=== PATIENT | male | born 1995 | race Caucasian/White ===

== ENCOUNTER 2024-07-29 08:33 | Inpatient (IN) | payer MEDICAID ==
[~2024-07-29] VITALS: Ht 170.2 cm; Wt 79.8 kg
[2024-07-29 09:05] LABS: BASOPHILS % 0.4 % (0.0-2.0); EOSINOPHILS % 0.1 % (0.0-5.0); HEMATOCRIT. 41.8 % (42.0-52.0); HEMOGLOBIN. 14.5 g/dL (14.0-18.0); LYMPHOCYTES % 13.4 % (20.0-50.0); MEAN CORPUSCULAR HEMOGLOBIN 31.1 pg (28.0-32.0); MEAN CORPUSCULAR HGB CONC 34.8 g/dL (31.0-37.0); MEAN CORPUSCULAR VOLUME 89.5 fL (80.0-94.0); MONOCYTES % 5.6 % (2.0-8.0); NEUTROPHILS % 80.5 % (40.0-76.0); PLATELET 206 x1000/uL (130-400); RED BLOOD CELL COUNT 4.67 mill/uL (4.7-6.1); RED CELL DISTRIBUTION WIDTH 13.9 % (11.6-14.6); WHITE BLOOD COUNT 13.9 x1000/uL (4.5-11.0)
[2024-07-29] MEDS: MORPHINE SULFATE 4 MG/ML INJ (FOR IV/IM USE) IV STA (09:11)
[2024-07-29] MEDS: ONDANSETRON HCL 4MG/2ML INJ IV STA (09:11)
[2024-07-29] MEDS: SODIUM CHLORIDE 0.9% 1,000 ML IV ONE (09:11)
[2024-07-29 09:13] LABS: CHLORIDE 97 mEq/L (98-107); POTASSIUM 3.3 mEq/L (3.5-5.1); SODIUM 134 mEq/L (136-145)
[2024-07-29 09:14] LABS: CARBON DIOXIDE 20 mEq/L (21-32)
[2024-07-29 09:15] LABS: CALCIUM 9.5 mg/dL (8.7-10.4)
[2024-07-29 09:19] LABS: CREATININE 0.9 mg/dL (0.6-1.3); GLUCOSE 127 mg/dL (70-105)
[2024-07-29 09:20] LABS: UREA NITROGEN BLOOD 17 mg/dL (9-23)
[2024-07-29 09:21] LABS: ALANINE AMINOTRANSFERASE 23 IU/L (10-49); ALBUMIN 4.4 g/dL (3.2-4.8); ASPARTATE AMINOTRANSFERASE 39 IU/L (<34)
[2024-07-29 09:22] LABS: BILIRUBIN DIRECT 0.3 mg/dL (<=3.0); BILIRUBIN TOTAL 1.3 mg/dL (0.1-1.0); PROTEIN TOTAL 7.5 g/dL (6.0-8.3)
[2024-07-29 09:25] LABS: INR 1.1; PROTHROMBIN TIME 11.4 sec (9.6-11.0)
[2024-07-29] MEDS: KETOROLAC 30MG/ML VIAL IV ONE (11:05)
[2024-07-29] MEDS ORDERED: DEXTROSE 50% WATER 50ML SYRINGE IV PRN (12:15)
[2024-07-29] MEDS ORDERED: ONDANSETRON HCL 4MG/2ML INJ IV PRN (12:15)
[2024-07-29] MEDS ORDERED: HYDROMORPHONE HCL/PF 2MG/ML INJ IV PRN (12:30)
[2024-07-29] MEDS: SODIUM CHLORIDE 0.9% 1,000 ML IV SCH (12:37)
[2024-07-29] MEDS ORDERED: NALOXONE HCL 0.4MG/ML VIAL IV PRN (12:45)
[2024-07-29] MEDS: ENOXAPARIN 40MG/0.4ML SYR SUBCUT SCH (12:48)
[2024-07-29] MEDS: LACTATED RINGERS 1,000 ML IV SCH (12:50)
[2024-07-29] MEDS: BLOOD SUGAR DIAGNOSTIC STRIP TEST SCH (13:05)
[2024-07-29] MEDS: INSULIN LISPRO 100 UNITS/ML SUBCUT SCH (13:20)
[2024-07-29] MEDS: ACETAMINOPHEN 1000MG/100ML 100 ML IV NR (13:30)
[2024-07-29] MEDS: PANTOPRAZOLE SODIUM 40 MG/VIAL IV NR (14:54)
[2024-07-29] MEDS: HYDROMORPHONE HCL/PF 1MG/ML INJ IV PRN (15:30)
[2024-07-29 17:49] VITALS: BP 141/90; PULSE 70; RESP 16; TEMP 37.1
[2024-07-29] MEDS: KETOROLAC 15MG/ML VIAL IV PRN (18:49)
[2024-07-29 20:00] VITALS: BP 148/95; PULSE 71; RESP 18; TEMP 36.4; O2SAT 100
[2024-07-29] MEDS: MORPHINE SULFATE 4 MG/ML INJ (FOR IV/IM USE) IV PRN (22:39)
[2024-07-30] VITALS: BP 152/80; PULSE 110; RESP 17; TEMP 36.3; O2SAT 97
[2024-07-30 04:00] VITALS: BP 139/102; PULSE 106; RESP 18; TEMP 36.6; O2SAT 97
[2024-07-30 06:34] LABS: BASOPHILS % 0.1 % (0.0-2.0); EOSINOPHILS % 0.1 % (0.0-5.0); HEMATOCRIT. 48.5 % (42.0-52.0); HEMOGLOBIN. 16.6 g/dL (14.0-18.0); LYMPHOCYTES % 10.2 % (20.0-50.0); MEAN CORPUSCULAR HEMOGLOBIN 30.8 pg (28.0-32.0); MEAN CORPUSCULAR HGB CONC 34.3 g/dL (31.0-37.0); MEAN CORPUSCULAR VOLUME 89.8 fL (80.0-94.0); MEAN PLATELET VOLUME 7.8 fl (7.4-10.4); MONOCYTES % 4.3 % (2.0-8.0); NEUTROPHILS % 85.3 % (40.0-76.0); PLATELET 173 x1000/uL (130-400); RED CELL DISTRIBUTION WIDTH 14.3 % (11.6-14.6)
[2024-07-30 06:47] LABS: CHLORIDE 102 mEq/L (98-107); POTASSIUM 3.9 mEq/L (3.5-5.1); SODIUM 136 mEq/L (136-145)
[2024-07-30 06:48] LABS: CARBON DIOXIDE 21 mEq/L (21-32)
[2024-07-30 06:49] LABS: CALCIUM 8.6 mg/dL (8.7-10.4)
[2024-07-30 06:53] LABS: CREATININE 0.9 mg/dL (0.6-1.3); GLUCOSE 137 mg/dL (70-105)
[2024-07-30 06:54] LABS: AMYLASE 676 IU/L (30-118); PROTEIN TOTAL 6.4 g/dL (6.0-8.3); UREA NITROGEN BLOOD 15 mg/dL (9-23)
[2024-07-30 06:55] LABS: ALANINE AMINOTRANSFERASE 13 IU/L (10-49); ALBUMIN 3.9 g/dL (3.2-4.8); ASPARTATE AMINOTRANSFERASE 27 IU/L (<34); BILIRUBIN DIRECT 0.4 mg/dL (<=3.0)
[2024-07-30 06:56] LABS: BILIRUBIN TOTAL 1.3 mg/dL (0.1-1.0)
[2024-07-30 07:07] LABS: HEPATITIS B SURFACE ANTIGEN NEGATIVE (Negative)
[2024-07-30 07:27] LABS: HEPATITIS A AB IGM NEGATIVE (Negative)
[2024-07-30 07:28] LABS: HEPATITIS B CORE AB IGM NEGATIVE (Negative); HEPATITIS C AB NON REACTIVE (Neg) (Negative)
[2024-07-30 08:00] VITALS: BP 165/111; PULSE 107; RESP 18; TEMP 36.6; O2SAT 98
[2024-07-30] MEDS: CLONIDINE 0.1MG TABLET PO PRN (09:13)
[2024-07-30] MEDS: PANTOPRAZOLE SODIUM 40 MG/VIAL IV SCH (09:14)
[2024-07-30 12:00] VITALS: BP 153/104; PULSE 83; RESP 18; TEMP 36.3; O2SAT 99
[2024-07-30 16:00] VITALS: BP 150/105; PULSE 90; RESP 18; TEMP 36.4; O2SAT 98
[2024-07-30 20:00] VITALS: BP 155/70; PULSE 86; RESP 18; TEMP 36.5; O2SAT 98
[2024-07-31] VITALS: BP 151/95; PULSE 77; RESP 18; TEMP 36.5; O2SAT 97
[2024-07-31 04:00] VITALS: BP 159/95; PULSE 76; RESP 18; TEMP 36.5; O2SAT 96
[2024-07-31 07:15] LABS: CARBON DIOXIDE 27 mEq/L (21-32); CHLORIDE 99 mEq/L (98-107); POTASSIUM 3.7 mEq/L (3.5-5.1); SODIUM 134 mEq/L (136-145)
[2024-07-31 07:16] LABS: CALCIUM 7.9 mg/dL (8.7-10.4)
[2024-07-31 07:19] LABS: BASOPHILS % 0.1 % (0.0-2.0); EOSINOPHILS % 0.9 % (0.0-5.0); HEMATOCRIT. 37.6 % (42.0-52.0); HEMOGLOBIN. 13.2 g/dL (14.0-18.0); LYMPHOCYTES % 16.4 % (20.0-50.0); MEAN CORPUSCULAR HEMOGLOBIN 31.2 pg (28.0-32.0); MEAN PLATELET VOLUME 7.7 fl (7.4-10.4); MONOCYTES % 5.5 % (2.0-8.0); NEUTROPHILS % 77.1 % (40.0-76.0); PLATELET 127 x1000/uL (130-400); RED BLOOD CELL COUNT 4.22 mill/uL (4.7-6.1); RED CELL DISTRIBUTION WIDTH 14.2 % (11.6-14.6); WHITE BLOOD COUNT 9.7 x1000/uL (4.5-11.0)
[2024-07-31 07:20] LABS: CREATININE 0.7 mg/dL (0.6-1.3); GLUCOSE 133 mg/dL (70-105); TRIGLYCERIDE 147 mg/dL (0-150)
[2024-07-31 07:21] LABS: UREA NITROGEN BLOOD 10 mg/dL (9-23)
[2024-07-31 07:23] LABS: BILIRUBIN TOTAL 0.8 mg/dL (0.1-1.0)
[2024-07-31] MEDS: ACETAMINOPHEN 500MG TABLET PO SCH (07:45)
[2024-07-31 08:00] VITALS: BP 152/101; PULSE 84; RESP 16; TEMP 36.6; O2SAT 98
[2024-07-31 12:00] VITALS: BP 167/96; PULSE 83; RESP 18; TEMP 37.6; O2SAT 97
[2024-07-31 16:00] VITALS: BP 150/98; PULSE 74; RESP 18; TEMP 36.5; O2SAT 97
[2024-07-31] MEDS ORDERED: MORPHINE SULFATE 4 MG/ML INJ (FOR IV/IM USE) IV PRN (17:35)
[2024-07-31 20:00] VITALS: BP 146/73; PULSE 78; RESP 16; TEMP 37; O2SAT 97
[2024-08-01] VITALS (7 sets, daily range): BP systolic 118–143; BP diastolic 61–82; PULSE 58–86; RESP 16–18; TEMP 36.3–37.9; O2SAT 94–100
[2024-08-01 07:10] LABS: BASOPHILS % 0.2 % (0.0-2.0); HEMOGLOBIN. 11.9 g/dL (14.0-18.0); LYMPHOCYTES % 17.8 % (20.0-50.0); MEAN CORPUSCULAR HEMOGLOBIN 31.3 pg (28.0-32.0); MEAN CORPUSCULAR HGB CONC 35.1 g/dL (31.0-37.0); MEAN CORPUSCULAR VOLUME 89.2 fL (80.0-94.0); MEAN PLATELET VOLUME 7.2 fl (7.4-10.4); MONOCYTES % 8.3 % (2.0-8.0); NEUTROPHILS % 72.7 % (40.0-76.0); PLATELET 133 x1000/uL (130-400); RED BLOOD CELL COUNT 3.81 mill/uL (4.7-6.1); WHITE BLOOD COUNT 8.4 x1000/uL (4.5-11.0)
[2024-08-01 07:20] LABS: CARBON DIOXIDE 29 mEq/L (21-32); CHLORIDE 99 mEq/L (98-107); POTASSIUM 3.6 mEq/L (3.5-5.1); SODIUM 135 mEq/L (136-145)
[2024-08-01 07:21] LABS: CALCIUM 8.2 mg/dL (8.7-10.4)
[2024-08-01 07:24] LABS: UREA NITROGEN BLOOD 7 mg/dL (9-23)
[2024-08-01 07:25] LABS: CREATININE 0.6 mg/dL (0.6-1.3)
[2024-08-01 07:26] LABS: GLUCOSE 93 mg/dL (70-105)
[2024-08-01 07:27] LABS: ALANINE AMINOTRANSFERASE 13 IU/L (10-49); ALBUMIN 3.4 g/dL (3.2-4.8); AMYLASE 245 IU/L (30-118); ASPARTATE AMINOTRANSFERASE 28 IU/L (<34)
[2024-08-01 07:28] LABS: BILIRUBIN DIRECT 0.2 mg/dL (<=3.0); BILIRUBIN TOTAL 0.7 mg/dL (0.1-1.0); PROTEIN TOTAL 5.5 g/dL (6.0-8.3)
[2024-08-02 04:00] VITALS: BP 137/77; PULSE 74; RESP 18; TEMP 36.3; O2SAT 97
[2024-08-02 07:55] LABS: CHLORIDE 98 mEq/L (98-107); POTASSIUM 3.9 mEq/L (3.5-5.1); SODIUM 136 mEq/L (136-145)
[2024-08-02 07:56] LABS: CALCIUM 8.5 mg/dL (8.7-10.4); CARBON DIOXIDE 30 mEq/L (21-32)
[2024-08-02 08:00] VITALS: BP 139/83; PULSE 67; RESP 18; TEMP 36.8; O2SAT 95
[2024-08-02 08:01] LABS: CREATININE 0.5 mg/dL (0.6-1.3); GLUCOSE 111 mg/dL (70-105); UREA NITROGEN BLOOD < 5 mg/dL (9-23)
[2024-08-02 08:02] LABS: AMYLASE 199 IU/L (30-118)
[2024-08-02 08:03] LABS: ALANINE AMINOTRANSFERASE 21 IU/L (10-49); ALBUMIN 3.8 g/dL (3.2-4.8); ASPARTATE AMINOTRANSFERASE 44 IU/L (<34); BILIRUBIN DIRECT 0.2 mg/dL (<=3.0)
[2024-08-02 08:04] LABS: BILIRUBIN TOTAL 0.7 mg/dL (0.1-1.0); PROTEIN TOTAL 6.2 g/dL (6.0-8.3)
[2024-08-02 08:06] LABS: BASOPHILS % 0.2 % (0.0-2.0); EOSINOPHILS % 0.9 % (0.0-5.0); HEMATOCRIT. 34.5 % (42.0-52.0); HEMOGLOBIN. 11.9 g/dL (14.0-18.0); LYMPHOCYTES % 16.8 % (20.0-50.0); MEAN CORPUSCULAR HEMOGLOBIN 31.3 pg (28.0-32.0); MEAN CORPUSCULAR HGB CONC 34.6 g/dL (31.0-37.0); MEAN CORPUSCULAR VOLUME 90.4 fL (80.0-94.0); MEAN PLATELET VOLUME 7.1 fl (7.4-10.4); MONOCYTES % 11.3 % (2.0-8.0); NEUTROPHILS % 70.8 % (40.0-76.0); PLATELET 175 x1000/uL (130-400); RED BLOOD CELL COUNT 3.82 mill/uL (4.7-6.1); RED CELL DISTRIBUTION WIDTH 14.3 % (11.6-14.6); WHITE BLOOD COUNT 7.4 x1000/uL (4.5-11.0)
[2024-08-02 08:37] VITALS: BP 139/83; PULSE 67; RESP 20; TEMP 36.8
[2024-08-02] MEDS ORDERED: FOLI-43 MT (09:11)
[2024-08-02] MEDS ORDERED: MULT-230 MT (09:11)
[2024-08-02] MEDS ORDERED: THIA100T88 MT (09:11)
[2024-08-02 12:00] VITALS: BP 142/88; PULSE 61; RESP 20; TEMP 36.4; O2SAT 96
[2024-08-02 13:09] VITALS: BP 142/88; PULSE 61; TEMP 97.2; O2SAT 100
== END 2024-08-02 16:00 | disposition home or self-care (01) | DRG 282 ==
LOC: ER 08:33 → 5WST 11:28 → EDBEDREQTM 11:31 → EDBEDREQ 11:31 → EDBEDREQSVC 14:15
PROVIDERS: ADMIT Family Medicine Adult Medicine; ATTEND Family Medicine Adult Medicine
DX: K85.20 Alcohol induced acute pancreatitis without necrosis or infection (principal); R65.10 Systemic inflammatory response syndrome (SIRS) of non-infectious origin without acute organ dysfunction; F17.290 Nicotine dependence, other tobacco product, uncomplicated; F10.90 Alcohol use, unspecified, uncomplicated; B99.8 Other infectious disease
CPT/HCPCS: 36415; 74176; 76705; 80048; 80076; 82150; 82247; 82962; 83036; 83735; 84100; 84145; 84478; 85025; 86705; 86709; 87340; 96361; 96374; 96375; 99285; J1650; J1815; J1885; J2270; J2405; J2470; J7030; J7120; J0131

== ENCOUNTER 2025-03-04 23:53 | Inpatient (IN) | payer MEDICAID ==
[~2025-03-04] VITALS: Ht 162.6 cm; Wt 75.7 kg
[~2025-03-04 23:53] MED LIST: AMLO10TA80 PO; FOLI-43 MT; HYDR100T11 MT; MULT-230 MT; THIA100T88 MT
[2025-03-04 23:58] VITALS: O2SAT 99
[2025-03-05 00:56] LABS: CLARITY URINE CLEAR (CLEAR); COLOR URINE YELLOW (YELLOW); GLUCOSE URINE NEGATIVE (NEGATIVE); KETONES URINE NEGATIVE (NEGATIVE); LEUKOCYTE ESTERASE URINE NEGATIVE (NEGATIVE); NITRITE URINE NEGATIVE (NEGATIVE); OCCULT BLOOD URINE NEGATIVE (NEGATIVE); PH URINE 6.0 (4.5-8.0); PROTEIN URINE TRACE (NEGATIVE); SPECIFIC GRAVITY URINE 1.029 (1.005-1.030); UROBILINOGEN URINE 1.0 E.U./dL (0.2-1.0)
[2025-03-05 01:07] LABS: *AMPHETAMINES SCREEN URINE NEGATIVE (NEGATIVE); *BARBITURATES SCREEN URINE NEGATIVE (NEGATIVE); *BENZODIAZEPINES SCREEN URINE NEGATIVE (NEGATIVE); *COCAINE SCREEN URINE PRESUMPTIVE POSITIVE (NEGATIVE); CANNABINOID URINE SCREEN NEGATIVE (NEGATIVE); ECSTASY MDMA SCREEN URINE NEGATIVE (NEGATIVE); METHADONE URINE SCREEN NEGATIVE (NEGATIVE); OPIATES URINE SCREEN NEGATIVE (NEGATIVE); PHENCYCLIDINE URINE SCREEN NEGATIVE (NEGATIVE)
[2025-03-05 01:27] LABS: BACTERIA URINE NONE SEEN; RBC URINE 0-2 /hpf (0-2); SQUAMOUS EPITHELIAL CELL URINE 1+ /lpf (RARE/1+); WBC URINE 0-2 /hpf (0-2)
[2025-03-05] MEDS: ONDANSETRON HCL 4MG/2ML INJ IV ONE (01:37)
[2025-03-05] MEDS: MORPHINE SULFATE 4 MG/ML INJ (FOR IV/IM USE) IV ONE (01:38)
[2025-03-05] MEDS: SODIUM CHLORIDE 0.9% 1,000 ML IV ONE (01:38)
[2025-03-05 01:49] LABS: CREATININE 0.8 mg/dL (0.6-1.3); UREA NITROGEN BLOOD 13 mg/dL (9-23)
[2025-03-05 01:50] LABS: ETHANOL BLOOD < 10 mg/dL (<10); PROTEIN TOTAL 7.8 g/dL (6.0-8.3)
[2025-03-05 01:51] LABS: ASPARTATE AMINOTRANSFERASE 39 IU/L (<34); BILIRUBIN DIRECT 0.2 mg/dL (<=3.0)
[2025-03-05 01:52] LABS: BILIRUBIN TOTAL 0.7 mg/dL (0.1-1.0)
[2025-03-05 03:26] LABS: BASOPHILS % 0.4 % (0.0-2.0); EOSINOPHILS % 1.3 % (0.0-5.0); HEMATOCRIT. 34.8 % (42.0-52.0); HEMOGLOBIN. 12.0 g/dL (14.0-18.0); LYMPHOCYTES % 34.8 % (20.0-50.0); MEAN PLATELET VOLUME 7.0 fl (7.4-10.4); MONOCYTES % 9.7 % (2.0-8.0); NEUTROPHILS % 53.8 % (40.0-76.0); PLATELET 210 x1000/uL (130-400); RED BLOOD CELL COUNT 3.89 mill/uL (4.7-6.1); RED CELL DISTRIBUTION WIDTH 13.2 % (11.6-14.6)
[2025-03-05 06:29] VITALS: BP 146/85; PULSE 66; RESP 20; TEMP 36.3624
[2025-03-05] MEDS ORDERED: MAGNESIUM/ALUMINUM HYDROXIDE/SIMETHICONE 30ML UDC PO PRN (06:30)
[2025-03-05] MEDS ORDERED: ZOLPIDEM TARTRATE 5MG TABLET PO PRN (06:30)
[2025-03-05] MEDS ORDERED: MORPHINE SULFATE 2 MG/ML INJ (NOT FOR IM USE) IV PRN (06:30)
[2025-03-05] MEDS ORDERED: ONDANSETRON HCL 4MG/2ML INJ IV PRN (06:30)
[2025-03-05] MEDS ORDERED: ACETAMINOPHEN 325MG TABLET PO PRN (06:30)
[2025-03-05] MEDS ORDERED: CLONIDINE 0.1MG TABLET PO PRN (06:30)
[2025-03-05] MEDS ORDERED: NALOXONE HCL 0.4MG/ML VIAL IV PRN (06:45)
[2025-03-05] MEDS: HYDROCODONE/ACETAMINOPHEN 5/325MG TABLET PO PRN (06:51)
[2025-03-05 08:00] VITALS: BP 126/96; PULSE 64; RESP 18; TEMP 36.6; O2SAT 98
[2025-03-05] MEDS: PANTOPRAZOLE SODIUM 40 MG/VIAL IV SCH (08:35)
[2025-03-05] MEDS: CEFTRIAXONE 1GM/50ML 50 ML IV SCH (08:36)
[2025-03-05] MEDS: ENOXAPARIN 40MG/0.4ML SYR SUBCUT SCH (08:36)
[2025-03-05] MEDS: SODIUM CHLORIDE 0.9% 1,000 ML IV SCH (08:37)
[2025-03-05 12:00] VITALS: BP 133/72; PULSE 53; RESP 18; TEMP 36.8; O2SAT 98
[2025-03-05 16:00] VITALS: BP 131/70; PULSE 57; RESP 18; TEMP 36.5; O2SAT 97
[2025-03-06 08:00] VITALS: BP 126/69; PULSE 60; RESP 19; TEMP 36.2; O2SAT 98
[2025-03-06 08:22] LABS: BASOPHILS % 0.5 % (0.0-2.0); EOSINOPHILS % 2.4 % (0.0-5.0); HEMATOCRIT. 35.5 % (42.0-52.0); HEMOGLOBIN. 12.2 g/dL (14.0-18.0); LYMPHOCYTES % 37.1 % (20.0-50.0); MEAN PLATELET VOLUME 7.2 fl (7.4-10.4); MONOCYTES % 10.5 % (2.0-8.0); NEUTROPHILS % 49.5 % (40.0-76.0); PLATELET 207 x1000/uL (130-400); RED BLOOD CELL COUNT 3.97 mill/uL (4.7-6.1); RED CELL DISTRIBUTION WIDTH 13.2 % (11.6-14.6)
[2025-03-06 08:28] LABS: CREATININE 0.7 mg/dL (0.6-1.3)
[2025-03-06 08:30] LABS: UREA NITROGEN BLOOD 7 mg/dL (9-23)
[2025-03-06 12:00] VITALS: BP 127/76; PULSE 57; RESP 20; TEMP 36.7; O2SAT 97
[2025-03-06 14:32] VITALS: BP 122/76; PULSE 57; RESP 18; TEMP 98
== END 2025-03-06 14:48 | disposition home or self-care (01) | DRG 241 ==
LOC: ER 23:53 → 6EST 03-05 04:29 → EDBEDREQTM 03-05 04:35 → EDBEDREQ 03-05 04:35 → ENRESERV 03-05 04:52
PROVIDERS: ADMIT Internal Medicine; ATTEND Internal Medicine
DX: K29.80 Duodenitis without bleeding (principal); K85.20 Alcohol induced acute pancreatitis without necrosis or infection; K76.0 Fatty (change of) liver, not elsewhere classified; F10.20 Alcohol dependence, uncomplicated; F14.10 Cocaine abuse, uncomplicated; K86.0 Alcohol-induced chronic pancreatitis
CPT/HCPCS: 36415; 74176; 76705; 80048; 80076; 80305; 80320; 81003; 83735; 84443; 85025; 99285; A4606; J0696; J1650; J2270; J2405; J2470; J7030; G0480